=== PATIENT | female | born 1995 | race Two or more races ===

== ENCOUNTER 2024-03-24 19:46 | Emergency (ER) | payer BC, OTHER ==
[~2024-03-24] VITALS: Ht 154.9 cm; Wt 76.4 kg
[2024-03-24] MEDS ORDERED: ACE3T PO (20:37)
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
[2024-03-24] MEDS: ONDANSETRON ODT 4 MG TAB PO ONE (20:40)
[2024-03-24] MEDS: ACETAMINOPHEN/CODEINE#3 (300/30mg) TAB PO ONE (20:40)
[2024-03-24 20:41] VITALS: BP 132/85; PULSE 85; RESP 14; TEMP 97.9; O2SAT 97
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
== END 2024-03-24 20:57 | disposition home or self-care (01) ==
LOC: ER 19:46
DX: S00.83XA Contusion of other part of head, initial encounter (principal); S30.1XXA Contusion of abdominal wall, initial encounter; S40.811A Abrasion of right upper arm, initial encounter; S40.812A Abrasion of left upper arm, initial encounter; F17.210 Nicotine dependence, cigarettes, uncomplicated; V89.2XXA Person injured in unspecified motor-vehicle accident, traffic, initial encounter; Y93.I9 Activity, other involving external motion; Y92.488 Other paved roadways as the place of occurrence of the external cause; Y99.8 Other external cause status
CPT/HCPCS: 70140; 99283; Q0162

== ENCOUNTER 2024-08-05 14:19 | Outpatient (CLI) | payer BC ==
[~2024-08-05 14:19] MED LIST: ACE3T PO
== END 2024-08-05 17:00 | disposition home or self-care (01) ==
LOC: LAB 14:19
PROVIDERS: ATTEND Obstetrics & Gynecology
DX: O03.9 Complete or unspecified spontaneous abortion without complication (principal); N89.8 Other specified noninflammatory disorders of vagina
CPT/HCPCS: 36415; 84144; 84702

== ENCOUNTER 2024-10-07 15:07 | Outpatient (CLI) | payer BC ==
[2024-10-07 15:40] LABS: Hematocrit 36.1 % (36.0-46.0); Hemoglobin 12.9 g/dL (12.2-16.2); Mean Corpuscular Hemoglobin 32.0 pg (28.0-32.0); Mean Corpuscular Volume 89.7 fL (80.0-100.0); Nucleated Red Blood Cells % 0.1 %
[2024-10-07 16:19] LABS: Amphetamine Screen, Urine Neg (NEGATIVE); Barbiturate Scree,Urine Neg (NEGATIVE); Benzodiazephine Screen, Urine Neg (NEGATIVE); Cannabinoid Screen, Urine Neg (NEGATIVE); Cocaine Screen, Urine Neg (NEGATIVE); Opiate Scree,Urine Neg (NEGATIVE); Phencyclidine Screen, Urine Neg (NEGATIVE)
[2024-10-09 02:06] LABS: Chlamydia Trachomatis, NAA Negative (Negative); Neisseria gonorrhoeae, NAA Negative (Negative)
== END 2024-10-07 17:00 | disposition home or self-care (01) ==
LOC: LAB 15:07
PROVIDERS: ATTEND Obstetrics & Gynecology
DX: O23.40 Unspecified infection of urinary tract in pregnancy, unspecified trimester (principal); N39.0 Urinary tract infection, site not specified; Z11.3 Encounter for screening for infections with a predominantly sexual mode of transmission; Z20.09 Contact with and (suspected) exposure to other intestinal infectious diseases; Z3A.00 Weeks of gestation of pregnancy not specified
CPT/HCPCS: 36415; 80307; 83036; 84144; 84702; 85025; 86703; 86762; 86780; 86787; 86850; 86900; 86901; 87086; 87340